=== PATIENT | male | born 1965 | race Caucasian/White ===

== ENCOUNTER 2024-01-25 09:40 | Emergency (ER) | payer BC ==
[2024-01-25] MEDS ORDERED: Proparacaine 0.5% Opth 15 ML BOT ONE (09:50)
[2024-01-25] MEDS ORDERED: Boostrix 0.5 ML (Tdap) VIAL (>/=7 yrs of age) ONE (10:41)
== END 2024-01-25 11:29 | disposition home or self-care (01) ==
LOC: CSHERS 09:40
DX: T54.2X1A Toxic effect of corrosive acids and acid-like substances, accidental (unintentional), initial encounter (principal); S05.02XA Injury of conjunctiva and corneal abrasion without foreign body, left eye, initial encounter; J45.909 Unspecified asthma, uncomplicated; Z23 Encounter for immunization; X58.XXXA Exposure to other specified factors, initial encounter; Y99.0 Civilian activity done for income or pay
CPT/HCPCS: 90471; 90715